=== PATIENT | female | born 1995 | race Caucasian/White ===

== ENCOUNTER 2016-05-10 20:32 | Outpatient (CLI) | payer BC, OTHER | END 2016-05-10 22:04 | disposition home or self-care (01) | LOC: GENOP 20:32 | DX: O99.89 Other specified diseases and conditions complicating pregnancy, childbirth and the puerperium (principal); R10.9 Unspecified abdominal pain; Z3A.24 24 weeks gestation of pregnancy | CPT/HCPCS: G0463 ==